=== PATIENT | male | born 1960 | race Caucasian/White ===

== ENCOUNTER 2017-05-12 12:54 | Observation (INO) | payer OTHER ==
[2017-05-12 13:48] LABS: ABS Basophils 0.1 10^3/ul (0-0.2); ABS Eosinophils 0.2 10^3/ul (0-0.6); ABS Lymphocytes 2.2 10^3/ul (1.0-4.8); ABS Monocytes 0.6 10^3/ul (0-0.8); ABS Neutrophils 3.6 10^3/ul (1.5-7.7); ABS Nucleated RBC 0 10^3/ul; Eosinophil % 3.5 % (0-6); Hematocrit 46 % (42-52); Hemoglobin 16.1 g/dl (14.0-18.0); Lymphocyte % 32.4 % (25-47); Mean Corpuscular HGB Conc 35 g/dl (31-36); Mean Corpuscular Hemoglobin 31 pg (27-31); Mean Corpuscular Volume 88 fL (80-94); Mean Platelet Volume 8 um3 (7.4-10.4); Nucleated Red Blood Cells % 0.4; Platelet Count 210 10^3/ul (150-450); Red Blood Count 5.18 10^6/ul (4.0-5.4); Red Cell Distribution Width 13 % (10.5-15); White Blood Count 6.6 10^3/ul (3.5-10.8)
[2017-05-12 14:10] LABS: EGFR Non-African American 81.7 (>60)
--- NOTE | 2017-05-12 15:28 | RAD ---
INDICATION: Chest pain COMPARISON: April 01, 2007 TECHNIQUE: PA and lateral dual-energy views were obtained. FINDINGS: Bones/Soft Tissues: There are no acute bony findings. Cardiomediastinal: The cardiomediastinal silhouette is normal. Lungs: There are no infiltrates. Pleura: There are no pleural effusions. Other: None IMPRESSION: NO ACTIVE DISEASE.
[2017-05-12] MEDS ORDERED: Aspirin TAB* 325 MG PO ONE (16:47)
[2017-05-12] MEDS ORDERED: Dextrose 50% Syringe 50 ML* 25 GM/50 ML SYRINGE IV PUSH PRN (17:34)
--- NOTE | 2017-05-12 17:46 | ADMNOTE ---
Subjective Date of Service: 05/12/17 Interval History: ADMISSION HISTORY AND PHYSICAL EXAM: Allergies Allergy/AdvReac Type Severity Reaction Status Date / Time amoxicillin Allergy Diarrhea Verified 05/12/17 13:05 Home Medications Medication Instructions Recorded Confirmed Type Propranolol TAB* [Inderal TAB*] 10 mg PO BID 10/07/14 05/12/17 History Pantoprazole TAB (NF) [Protonix 40 mg PO DAILY 02/23/16 05/12/17 History TAB (NF)] Rosuvastatin (NF) [Crestor (NF)] 10 mg PO DAILY 05/12/17 05/12/17 History metFORMIN* [Glucophage 500 MG TAB 1,500 mg PO QAM 05/12/17 05/12/17 History *] HPI: The patient was in his usual state of healt when he went to work He works as a CPA. About 10 AM he felt dizzy when he stood up. This feeling persisted for several hours and was present when he arrived in the ED about 1 PM. He denies chest pain, palpitations, diaphoresis, SOB, nausea. He never had this feeling before. He does not exercise. He had 2 stress tests in the past. He is on propranolol for a pain in his L side that hasn't returned since he started propranolol. Family History: Findings - F of lung cncer, smoked. Mother A&W. 3 younger sibs w/o heart disease. Social History: Findings - Works fulltime as CPA. Lives with his who is his SDM. Quit smoking 30 yrs ago, smoked 8 yrs. No alcohol abuse. Past Medical History: Findings - Never hospitalized. A1C 8+ in Dr. Qiu's office recently. HL. Review of Systems - Measurements Intake and Output: Intake and Output Last 24 Hours 05/10/17 05/11/17 05/12/17 05/13/17 06:59 06:59 06:59 06:59 Weight 249 lb - Review of Systems Constitutional Symptoms: Positive: Weight Loss - Dieted and lost 20 lbs in last 6 months Dermatology: Positive: Normal HEENT: Positive: Normal Eyes: Positive: Normal Thyroid: Positive: Normal Pulmonary: Positive: Normal Cardiology: Positive: Faintness Gastroenterology: Positive: Normal Genital - Urinary: Positive: Nocturia - x 1 Genitourinary - Male: Negative: Prostatism, Erectile Dysfunction, Family Hx of Prostate Cancer, Other Musculoskeletal: Negative: Joint Pain, Joint Stiffness, Arthritis, Osteoporosis, Low Back Pain , Sciatica, Joint Deformities, Kyphoscoliosis, Other Endocrinology: Positive: Obesity, Diabetes Mellitus Hematologic/Lymphatic: Negative: Anemia, Easy Brusing, Hx Leukemia, Hx Lymphoma, Use of Anticoagulant, Use of Antiplatelet Drugs, Other Neurology: Positive: Normal Psychiatry: Positive: Normal Allergic/Immunologic: Negative: Hx Anaphylaxis, Hx Angioedema, Hx Environmental, Hx Seasonal, Athsma, Hx HIV, Immunocompromise, Swollen Glands LymphNodes, Other Objective Active Medications: Dextrose (D50w Syringe 50 Ml*) 12.5 gm IV PUSH .FOR FS < 60 - SS PRN PRN Reason: FS < 60 Insulin Human Lispro (Humalog*) 0 units SUBCUT ACHS ADELIA PRN Reason: Protocol Pantoprazole Sodium (Protonix Tab (Nf)) 40 mg PO DAILY ADELIA Rosuvastatin Calcium (Crestor (Nf)) 10 mg PO DAILY ADELIA PRN Reason: Protocol Vital Signs - 8 hr 05/12/17 05/12/17 05/12/17 13:02 15:20 16:23 Temperature 98.3 F Pulse Rate 58 50 Respiratory 16 16 Rate Blood Pressure 150/89 125/71 125/86 (mmHg) O2 Sat by Pulse 98 100 Oximetry 05/12/17 05/12/17 05/12/17 16:24 16:25 16:30 Temperature Pulse Rate 50 52 Respiratory 17 16 Rate Blood Pressure 132/80 (mmHg) O2 Sat by Pulse 93 97 96 Oximetry 05/12/17 17:00 Temperature Pulse Rate 56 Respiratory 19 Rate Blood Pressure 134/81 (mmHg) O2 Sat by Pulse 97 Oximetry Oxygen Devices in Use Now: None Appearance: Alert, sitting on the edge of the ED stretcher. In good spirits. Looks comfortable. Eyes: No Scleral Icterus Neck: NL Appearance and Movements; NL JVP, No Thyroid Enlargement, Masses Respiratory: Symmetrical Chest Expansion and Respiratory Effort, Clear to Auscultation, Clear to Percussion Cardiovascular: NL Sounds; No Murmurs; No JVD, RRR, No Edema, - Extremities: No Edema, No Clubbing, Cyanosis, - Skin: No Rash or Ulcers, No Nodules or Sclerosis, - Neurological: Alert and Oriented x 3, NL Sensation Result Diagrams: 05/12/17 13:37 05/12/17 13:37 Assess/Plan/Problems-Billing Assessment: - Patient Problems (1) Faintness Current Visit: Yes Status: Acute Code(s): R55 - SYNCOPE AND COLLAPSE SNOMED Code(s): 733611373 Comment: Orthostatic VS requested. Could be arrhythmia although pt state he had the feeling during his ECG. Tele, troponin x 3, exercise stress test with nuclear imaging. Hold propranolol and metformin. He had ASA 325 mg 17:50 on . Further ASA depending on results of troponins and stress test. (2) Diabetes Current Visit: Yes Status: Acute Code(s): E11.9 - TYPE 2 DIABETES MELLITUS WITHOUT COMPLICATIONS SNOMED Code(s): 73604339 Comment: Lispro by SS. Fup Dr. Qiu. Hold propranolol and metformin. (3) Hyperlipidemia Current Visit: Yes Status: Acute Code(s): E78.5 - HYPERLIPIDEMIA, UNSPECIFIED SNOMED Code(s): 08466106 Comment: Continue rosuvastatin.
--- NOTE | 2017-05-12 17:57 | PN ---
Progress Note - Progress Note Date of Service: 05/12/17 Note: No DVT prophylaxis ordered because 1: His score was 2 2: I anticipate he will be in the hospital less than 24 hrs. 3: I encouraged him to walk in the halls frequently during this admission. If his admission is extended past 24 hrs I would re-consider the use of chemical prophylaxis for DVT.
[2017-05-12] MEDS: Insulin LISPRO* 1 UNITS UNIT SUBCUT SCH (21:51)
[2017-05-13] MEDS ORDERED: Omeprazole CAP* 20 MG PO SCH (07:30)
--- NOTE | 2017-05-13 09:24 | RAD ---
INDICATION: Dizziness COMPARISON: None TECHNIQUE: A single day SPECT protocol was utilized. Rest images were acquired following the intravenous injection of 10.6 millicuries of technetium 99m tetrofosmin. Exercise stress images were acquired following the intravenous administration of 25.8 millicuries of technetium 99m tetrofosmin. The patient was exercised to a peak heart rate of 160 which is 98% of age predicted maximum of age predicted maximum. FINDINGS: There are no defects of the stress-induced or fixed nature. The cardiac chamber size is normal. There are no wall motion abnormalities. The ejection fraction is calculated at 62 percent during stress. IMPRESSION: NO DEFECTS OR STRESS-INDUCED OR FIXED NATURE. NORMAL CONTRACTILITY ASSESSMENT: LOW-RISK Based on imaging criteria from ACC/AHA 2002 Guideline Update for the Management of Patients With Chronic Stable Angina Table 23. Noninvasive Risk Stratification.
[2017-05-13] MEDS: Insulin LISPRO* 1 UNITS UNIT SUBCUT SCH ×2 (09:26→11:49)
[2017-05-13 12:36] VITALS: BP 129/77
--- NOTE | 2017-05-13 14:28 | ED ---
Ryland Mckeon Angela, scribed for Alvino Cleveland MD on 05/12/17 at 1624 . Dizziness - HPI Summary HPI Summary: This pt is a 56 y/o male presenting to [facility] c/o intermittent dizziness and chest flutter today. Pt reports he "feels off." He states his dizziness and chest flutter began at the same time at approximately 10:00 today. He notes that for the past 3 hours the pt has had intermittent dizziness. He denies chest pain, SOB, tingling, SOB, cough, diaphoresis, fever, chills, LE pain, LE swelling. Pt states he has never had this before. He reports that years ago he had sharp pain on his left side that has not reocurred for 3 years since he began taking propranolol. He has had a couple of stress tests in the past. Pt is currently on Metformin, pt began taking metformin on 2016 and has recently increased his dose on 04/23/17. Pt notes a FHx of heart disease in his father. - History Of Current Complaint Chief Complaint: EDDizziness Stated Complaint: DIZZY, RAPID HEART RATE Time Seen by Provider: 05/12/17 16:09 Hx Obtained From: Patient Onset/Duration: Still Present, Suddenly Timing: Hours Severity Currently: Moderate Character: Dizzy Aggravating Factor(s): Nothing Alleviating Factor(s): Nothing Associated Signs And Symptoms: Positive: Palpitations - heart flutter. Negative : Diaphoresis, Chest Pain, SOB, Fever, Chills, Other: - LE swelling, LE pain, cough - Allergies/Home Medications Allergies/Adverse Reactions: Allergies Allergy/AdvReac Type Severity Reaction Status Date / Time amoxicillin Allergy Diarrhea Verified 05/12/17 13:05 Home Medications: Home Medications Rosuvastatin (NF) [Crestor (NF)] 10 mg PO DAILY 05/12/17 [History Confirmed ] metFORMIN* [Glucophage 500 MG TAB *] 1,500 mg PO QAM 05/12/17 [History Confirmed 05/12/17] PMH/Surg Hx/FS Hx/Imm Hx Endocrine/Hematology History: Reports: Hx Diabetes Cardiovascular History: Denies: Hx Hypertension, Hx Pacemaker/ICD Respiratory History: Denies: Hx Asthma Sensory History: Denies: Hx Hearing Aid Psychiatric History: Denies: Hx Panic Disorder Infectious Disease History: No Infectious Disease History: Denies: Hx Clostridium Difficile, Hx Hepatitis, Hx Human Immunodeficiency Virus (HIV), Hx of Known/Suspected MRSA, Hx Shingles, Hx Tuberculosis, Hx Known/ Suspected VRE, Hx Known/Suspected VRSA, History Other Infectious Disease, Traveled Outside the [place] in Last 30 Days - Family History Known Family History: Positive: Cardiac Disease - father Family History: Father: lung CA. - Social History Alcohol Use: Occasionally Substance Use Type: Reports: None Smoking Status (MU): Former Smoker Review of Systems Negative: Fever, Chills, Skin Diaphoresis Negative: Erythema Negative: Sore Throat Cardiovascular: Other - chest flutter Negative: Chest Pain Negative: Shortness Of Breath, Cough Negative: Abdominal Pain, Vomiting, Nausea Negative: dysuria, hematuria Negative: Myalgia, Edema, Other - LE pain Negative: Rash Neurological: Other - POS: dizziness Negative: Paresthesia All Other Systems Reviewed And Are Negative: Yes Physical Exam - Summary Physical Exam Summary: Constitutional: Well-developed, Well-nourished, Alert. (-) Distressed Skin: Warm, Dry HENT: Normocephalic; Atraumatic Eyes: Conjunctiva normal Neck: Musculoskeletal ROM normal neck. (-) JVD, (-) Stridor, (-) Tracheal deviation Cardio: Rhythm regular, rate normal, Heart sounds normal; Intact distal pulses; The pedal pulses are 2+ and symmetric. Radial pulses are 2+ and symmetric. (-) Murmur Pulmonary/Chest wall: Effort normal. (-) Respiratory distress, (-) Wheezes, (-) Rales Abd: Soft, (-) Tenderness, (-) Distension, (-) Guarding, (-) Rebound Musculoskeletal: (-) Edema Lymph: (-) Cervical adenopathy Neuro: Alert, Oriented x3 Psych: Mood and affect Normal Triage Information Reviewed: Yes Vital Signs On Initial Exam: Initial Vitals Temp Pulse Resp BP Pulse Ox 98.3 F 58 16 150/89 98 05/12/17 13:02 05/12/17 13:02 05/12/17 13:02 05/12/17 13:02 05/12/17 13:02 Vital Signs Reviewed: Yes Diagnostics - Vital Signs Vital Signs Temp Pulse Resp BP Pulse Ox 05/12/17 15:20 50 16 125/71 100 05/12/17 13:02 98.3 F 58 16 150/89 98 - Laboratory Lab Results: Lab Results 05/12/17 05/12/17 05/12/17 Range/Units 13:37 13:37 13:37 WBC 6.6 (3.5-10.8) 10^3/ul RBC 5.18 (4.0-5.4) 10^6/ul Hgb 16.1 (14.0-18.0) g/dl Hct 46 (42-52) % MCV 88 (80-94) fL MCH 31 (27-31) pg MCHC 35 (31-36) g/dl RDW 13 (10.5-15) % Plt Count 210 (150-450) 10^3/ul MPV 8 (7.4-10.4) um3 Neut % (Auto) 53.9 (38-83) % Lymph % (Auto) 32.4 (25-47) % [place] % (Auto) 9.2 H (0-7) % Eos % (Auto) 3.5 (0-6) % Baso % (Auto) 1.0 (0-2) % Absolute Neuts (auto) 3.6 (1.5-7.7) 10^3/ul Absolute Lymphs (auto) 2.2 (1.0-4.8) 10^3/ul Absolute Monos (auto) 0.6 (0-0.8) 10^3/ul Absolute Eos (auto) 0.2 (0-0.6) 10^3/ul Absolute Basos (auto) 0.1 (0-0.2) 10^3/ul Absolute Nucleated RBC 0 10^3/ul Nucleated RBC % 0.4 Sodium 137 (133-145) mmol/L Potassium 4.1 (3.5-5.0) mmol/L Chloride 105 (101-111) mmol/L Carbon Dioxide 27 (22-32) mmol/L Anion Gap 5 (2-11) mmol/L BUN 12 (6-24) mg/dL Creatinine 0.95 (0.67-1.17) mg/dL Est GFR ( Amer) 105.1 (>60) Est GFR (Non-Af Amer) 81.7 (>60) BUN/Creatinine Ratio 12.6 (8-20) Glucose 148 H (70-100) mg/dL Lactic Acid 0.8 (0.5-2.0) mmol/L Calcium 9.5 (8.6-10.3) mg/dL Total Bilirubin 1.10 H (0.2-1.0) mg/dL AST 33 (13-39) U/L ALT 51 (7-52) U/L Alkaline Phosphatase 78 (34-104) U/L Troponin I 0.00 (<0.04) ng/mL Total Protein 7.3 (6.4-8.9) g/dL Albumin 4.1 (3.2-5.2) g/dL Globulin 3.2 (2-4) g/dL Albumin/Globulin Ratio 1.3 (1-3) Result Diagrams: 05/12/17 13:37 05/12/17 13:37 Lab Statement: Any lab studies that have been ordered have been reviewed, and results considered in the medical decision making process. - Radiology Chest XR Xray Interpretation: No Acute Changes - IMPRESSION: No active disease. Dr. Cleveland has reviewed this radiology report. Radiology Interpretation Completed By: Radiologist - EKG 13:07 Cardiac Rate: Bradycardia EKG Rhythm: Sinus Bradycardia - at 53 bpm EKG Interpretation: Borderline left axis deviation. No STEMI. Dizzy Course/Dx - Course Course Of Treatment: In the ED course the pt was given aspirin. Lab work, EKG, and chest XR were obtained. Chest XR is negative. Labs show glucose of 148. I discussed pt care with Dr. Chavez, hospitalist, who has agreed to admit the pt. - Diagnoses Provider Diagnoses: Chest pain, unspecified - Provider Notifications Discussed Care Of Patient With: Blayne Chavez Time Discussed With Above Provider: 17:08 Instructed by Provider To: Other - I discussed pt care with Dr. Chavez, hospitalist, who has agreed to admit the pt. Discharge - Discharge Plan Condition: Stable Disposition: ADMITTED TO [facility] documentation as recorded by the Ryland chavez Angela accurately reflects the service I personally performed and the decisions made by me, Alvino Cleveland MD.
--- NOTE | 2017-05-14 06:26 | DS ---
CC: Dr. Qiu * DISCHARGE SUMMARY: DATE OF ADMISSION: 05/12/17 DATE OF DISCHARGE: 05/13/17 DISCHARGE DIAGNOSIS: Dizziness with low-probability cardiac stress test documented on 05/13/17. SECONDARY DIAGNOSES: 1. Diabetes. 2. History of chest pain that resolved after propranolol was started in the past. MEDICATIONS AT DISCHARGE: Include: 1. Propranolol 10 mg p.o. b.i.d. 2. Crestor 10 mg daily. 3. Protonix 40 mg daily. 4. Glucophage 1500 mg daily. LABORATORY DATA AND STUDIES PERFORMED DURING THE HOSPITAL STAY: Included: Troponin throughout his hospital stay were negative. The patient's exercise cardiac stress test, the nuclear portion showed no defects of stress-induced or fixed nature. Normal contractility and low risk. HOSPITAL COURSE: Ovi Villanueva is a 56-year-old male who presented complaining of dizziness. It could have been related to mild dehydration. Nevertheless, the patient was observed on web content writer bed. We had noted for the patient to have heart rate between 50 to 65 beats per minute. The patient's propranolol was held prior to stress test. On reassessment, the patient's heart rate was ranged between 65 to 160. His exercise tolerance was good and his nuclear portion of the stress test was negative. His dizziness did not recur. Patient stated that he lost a significant amount of weight in the past year. He is watching his diet, but he states that usually during the tax season he drinks a lot of soda and it is possible that the patient's sugars were uncontrolled during the day when his symptoms occurred. His orthostatic blood pressures were checked and the patient was not orthostatic when evaluated in the emergency department. He had a negative cardiac stress test. He is going to be recommended to follow up with his primary care provider after discharge in 4 to 7 days. In regards to the patient's bradycardia I discussed with the patient probably stopping the propranolol. The patient stated that he owns a fit bed that he uses on a daily basis, that he never noted his heart rate to be below 50 and he noticed that when he was dizzy his heart rate was not slow. Propranolol successfully treated his intermittent left-sided chest pains. At this point, I will not discontinue propranolol, but ask the patient to monitor his heart rate especially if he were to get symptomatic again. PHYSICAL EXAMINATION: At the time of discharge: Blood pressure 159/77, heart rate of 65 and regular, respiratory rate 14, oxygen saturation 98% on room air, and temperature 98.2. General: This is a very pleasant 56-year-old male who is in no acute distress, alert, awake, and oriented x3. HEENT: Head atraumatic and normocephalic. Eyes: Pupils are equal, round, and reactive to light and accommodation. Oropharynx clear. Mucosa moist. Neck: Supple. No JVD. No bruits bilaterally. Cardiovascular: Regular, rate, and rhythm. No murmur. Respiratory: Clear to auscultation bilaterally. Abdomen is soft and nontender. Bowel sounds present in all 4 quadrants. Extremities: There is no edema. Pulses are +2 bilaterally. No clubbing or cyanosis. Neuro Evaluation: Grossly nonfocal. Cranial nerves II through XII grossly intact. Motor strength is 5/5 bilaterally. Please note that this is a short summary of the patient's hospitalization, please refer to further medical records for details. [id number]/[facility] #: [id number] [place]
== END 2017-05-13 13:44 | disposition home or self-care (01) ==
LOC: ED 12:54 → MEDTELE 18:17
PROVIDERS: ADMIT Internal Medicine; ATTEND Internal Medicine
DX: R42 Dizziness and giddiness (principal); E11.9 Type 2 diabetes mellitus without complications; Z79.899 Other long term (current) drug therapy; Z88.0 Allergy status to penicillin; R55 Syncope and collapse; Z82.49 Family history of ischemic heart disease and other diseases of the circulatory system; R00.1 Bradycardia, unspecified; R94.31 Abnormal electrocardiogram [ECG] [EKG]
CPT/HCPCS: 36415; 71045; 78452; 80053; 83605; 84484; 85025; 93005; 93017; 99283; A9270-GY; A9502; G0378